=== PATIENT | female | born 1975 | race Caucasian/White ===

== ENCOUNTER 2016-08-29 15:29 | Emergency (ER) | payer MEDICARE ==
[2016-08-29 15:36] VITALS: BMI 46.2
[2016-08-29] MEDS ORDERED: OXYCODONE HCL 5 MG TABLET PO ONE (16:06)
[2016-08-29 16:07] LABS: LEUKOCYTES/URINE NEG (NEGATIVE); NITRITE/URINE NEG (NEGATIVE); RBC/URINE 0-2 (0-5); URINE OCCULT BLOOD 1+ (NEG/TRACE)
--- NOTE | 2016-08-29 16:09 | EDPRACDOC ---
- General Information Chief Complaint: Abdominal Pain Stated Complaint: ABD PAIN, INCREASED URINATION Time Seen by Provider: 08/29/16 15:59 Mode Of Arrival: Car Home Medications: Home Medications Atorvastatin Calcium [Lipitor] 20 mg PO DAILY 01/15/16 Benztropine Mesylate 1 mg PO BID 01/15/16 CloNIDine (Antihypertensive) [Catapres] 0.1 mg PO TID 01/15/16 Levothyroxine [Synthroid, Levoxyl] 125 mcg PO DAILY 01/15/16 Lurasidone HCl [Latuda] 80 mg PO QHS 01/15/16 Ranitidine HCl [Zantac] 300 mg PO QHS 01/15/16 Folic Acid 1 mg PO DAILY 02/12/16 Humalog Mix 75/25 50 units SQ TID 02/12/16 Propranolol HCl 10 mg PO DAILY 02/12/16 Canagliflozin [Invokana] 100 mg PO DAILY 08/29/16 Duloxetine HCl [Cymbalta] 30 mg PO DAILY 08/29/16 Ibuprofen [Advil] 200 mg PO Q4-6H PRN 08/29/16 Ketorolac Tromethamine [Toradol] 10 mg PO Q6H PRN #20 tab 08/29/16 [id number] Ethyl Esters [Lovaza ([place]-3 Acid Ethyl Esters)] 1,000 mg PO BID 08/29/16 Pregabalin [Lyrica] 200 mg PO TID 08/29/16 Sumatriptan Succinate [Imitrex] 100 mg PO DAILY PRN 08/29/16 Triamterene/Hydrochlorothiazid [Triamterene-Hctz 37.5-25 mg Tb] 1 tab PO DAILY 08/29/16 Allergies/Adverse Reactions: Allergies Allergy/AdvReac Type Severity Reaction Status Date / Time lisinopril Allergy Intermediate Edema-Oral/ Verified 08/29/16 15:36 Lip metformin Allergy Intermediate Nausea/Vomi Verified 08/29/16 15:36 ting pantoprazole Allergy Intermediate Diarrhea Verified 08/29/16 15:36 hydrocodone Allergy Hives* Verified 08/29/16 15:36 - History of Present Illness Onset: YEST HPI: PATIENT PRESENTS WITH LLQ ABDOMINAL PAIN RADIATING IN TO GROIN. STARTED LAST NIGHT. MILD NAUSEA. NO VOMITING. NO DIARRHEA. NO FEVER. HX OF HYSTERECTOMY WITH RIGHT OOPHORECTOMY, CHOLECYSTECTOMY Pain Location: Reports: LLQ Pain Context: Reports: Spontaneous Pain Severity: Mild Pain Quality: Reports: Aching Pain Radiation: Reports: No Radiation Control Method: Reports: Hysterectomy Adult Abdominal History: Reports: Abdominal Surgery Female Associated Signs & Symptoms: Reports: Nausea Oral Intake: Normal Urinary Output: Normal - Treatment Prior to ED Arrival Reported Medications/Treatment [employer] Ibuprofen/Acetaminophen (Dose/ MOTRIN 200MG-1300 Time) ED Past Medical History - History Reviewed Yes Nurses notes reviewed and agree except as marked Travel Outside of [place] in the Last 3 Months?: No - Patient Medical History Neurological History: Denies: Cerebrovascular Accident Cardiac History: Reports: Hypertension, Congestive Heart Failure (patient is unsure), Hypercholesterolemia Respiratory History: Reports: Asthma, COPD, Pneumonia, Emphysema GI/ History: Reports: Renal Disease, Gastroesophageal Reflux Musculoskeletal History: Reports: Arthritis Psychological History: Reports: Depression, Anxiety, Bipolar Disorder (Many emergency department visits. Has been hospitalized for mental health.). Denies : Substance Use Disorder Systemic History: Reports: Anemia, Diabetes, Hypothyroidism (and HIST OF PITUITARY TUMOR 7YRS AGO.). Denies: Cancer Surgical History: Reports: Cholecystectomy, Hysterectomy, Other (COPD, Asthma, Emphysema, Arthritis, GERD, Diabetes, Hypothyroidism) - Family Medical History Reports: Hypertension (Mother), Diabetes (Father), Cardiac Disorders (Paternal grandfather, [place] but in 70's.). Denies: Cancer - Social Medical History Smoking Status: Never smoker Social History: Denies: Substance Use Disorder Lives With: Family Lives In: Home EDM Review of Systems - Review of Systems ROS Negative Except as Marked: Yes All systems reviewed and were negative except as marked Constitutional: No Symptoms Reported. negative: Fever, Chills, Weakness, Fatigue, Loss of Appetite Eyes: No Symptoms Reported. negative: Redness, Blurred Vision, Double Vision, Discharge, Pain, Light Sensitive, Photophobia Ears: No Symptoms Reported. negative: Pain, Hearing Loss, Drainage, Ear Pulling Throat: No Symptoms Reported. negative: Pain, Swelling Nose: No Symptoms Reported. negative: Congestion, Bleeding, Discharge, Injection, Swelling, Deformity, Ecchymosis, Tender, Abrasion, Laceration Mouth: No Symptoms Reported. negative: Pain, Drooling Respiratory: No Symptoms Reported. negative: Cough, Brassy Cough, Barky Cough, Shortness of Breath, Wheezing, Hemoptysis Cardiovascular: No Symptoms Reported. negative: Chest Pain, Palpitations, Syncope, Edema, Orthopnea, PND, Skin Mottling, Cyanosis Gastrointestinal: Nausea, Pain. negative: Constipation, Diarrhea, Formula Intolerance, Melena, Vomiting Genitourinary: No Symptoms Reported. negative: Dysuria, Hematuria, Frequency, Discharge, Bleeding, Testicular Pain, Neurological: No Symptoms Reported. negative: Headache, Dizziness, Seizure, Numbness, Weakness, Speech Difficulty, Gait Difficulty Musculoskeletal: No Symptoms Reported. negative: Neck, Chestwall, Ribs, Back, Shoulder, Arm, Elbow, Forearm, Wrist, Hand, Pelvis, Hip, Femur, Knee, Leg, Ankle , Foot Integumentary: No Symptoms Reported. negative: Itching, Rash, Bruising, Wound Allergic/Immunologic: No Symptoms Reported. negative: Hives, Itching Hematologic: No Symptoms Reported. negative: Lymphadenopathy, Easy Bruising, Easy Bleeding Endocrine: No Symptoms Reported. negative: Weight Gain, Weight Loss Psychiatric: No Symptoms Reported. negative: Anxiety, Depression, Hallucinations, Insomnia, Suicidal - Physical Exam Constitutional: No apparent distress, Alert (Awake) Oriented to: Time, Person, Place Last recorded Vital Signs: Last Vital Signs Temp 97.8 F 08/29/16 15:31 Pulse 87 08/29/16 15:31 Resp 20 08/29/16 15:31 BP 153/100 08/29/16 15:31 Pulse Ox 97 08/29/16 15:31 Oxygen Pulse Oxygen Saturation 97 O2 Device Oxygen Flow Rate Fraction of Inspired Oxygen ( FIO2) - HEENT Head: Normal ( normocephalic) Eye Exam: Normal (PERRL, EOMI, Sclera white) Oropharynx: Normal (Pharynx:Moist without exudate,Gums-no swelling) Tympanic Membrane: Normal ENT EAC: Normal TMJ: Normal Nose: No Symptoms Reported (septum midline) Neck: Normal (FROM, trachea at midline) - Respiratory/Cardiovascular Respiratory: Normal - CTA (BBS clear to auscultation without adventitious sounds ) Cardiovascular: Normal (RRR without murmur, gallop or rub) - GI Auscultation: Normal (NABS) Palpation: Normal (Soft,No rebound or guarding, non distended) Tenderness: Mild, LLQ. negative: Rebound, Rigidity Carson's Sign: Negative - Bladder: Normal - Musculoskeletal Back: Normal (Non-Tender) Extremities: Normal (Normal tone, Pulses 2+ No cyanosis or edema, FROM) - Integumentary Skin: Normal, Warm, Dry Lymphatics: Normal (no adenopathy) - Neurologic Memory Impaired: Normal Motor Function: Normal (Normal tone, Pulses 2+ No cyanosis or edema, FROM) Cranial Nerve: Normal (CN II-X11 intact sensation, strength 5/5) Cerebellar: Normal Mood Description: Normal Perception: Normal - Results 08/29/16 16:35 08/29/16 16:35 WBC 8.5 xk/uL (3.8-10.8) 08/29/16 16:35 RBC 4.77 xM/uL (4.20-5.40) 08/29/16 16:35 Hgb 15.1 g/dL (12.0-16.0) 08/29/16 16:35 Hct 44.4 % (36-47) 08/29/16 16:35 MCV 93 fL (81-99) 08/29/16 16:35 MCH 31.6 pg (27-32) 08/29/16 16:35 MCHC 34.0 g/dl (33-36) 08/29/16 16:35 RDW 14.0 % (11.5-14.5) 08/29/16 16:35 Plt Count 304 xk/uL (130-400) 08/29/16 16:35 MPV 7.6 fL (7.4-10.4) 08/29/16 16:35 Neut % (Auto) 53.4 % (45-76) 08/29/16 16:35 Lymph % (Auto) 37.2 % (17-44) 08/29/16 16:35 [place] % (Auto) 6.5 % (3-10) 08/29/16 16:35 Eos % (Auto) 1.6 % (0-5) 08/29/16 16:35 Baso % (Auto) 1.3 % (0-2) 08/29/16 16:35 Absolute Neuts (auto) 4.51 xk/uL (1.7-8.2) 08/29/16 16:35 Absolute Lymphs (auto) 3.15 xk/uL (0.65-4.75) 08/29/16 16:35 Urine Color Pale yellow 08/29/16 15:38 Urine Clarity Hazy 08/29/16 15:38 Urine pH 5.0 (5.0-8.0) 08/29/16 15:38 Ur Specific [place] 1.005 (1.003-1.035) 08/29/16 15:38 Urine Protein Neg (NEG/TRACE) 08/29/16 15:38 Urine Glucose (UA) 3+ (NEGATIVE) H 08/29/16 15:38 Urine Ketones Neg (NEGATIVE) 08/29/16 15:38 Urine Occult Blood 1+ (NEG/TRACE) H 08/29/16 15:38 Urine Nitrite Neg (NEGATIVE) 08/29/16 15:38 Urine Bilirubin Neg (NEGATIVE) 08/29/16 15:38 Urine Urobilinogen <2.0 MG/DL (0-1) 08/29/16 15:38 Ur Leukocyte Esterase Neg (NEGATIVE) 08/29/16 15:38 Urine RBC 0-2 (0-5) 08/29/16 15:38 Urine WBC 2-5 (0-5) 08/29/16 15:38 Ur Epithelial Cells 1+ 08/29/16 15:38 Urine Bacteria 1+ (NEG/FEW) H 08/29/16 15:38 Urine Mucus Occ (NEG/OCC) 08/29/16 15:38 Urine Yeast Sm amt (NONE) 08/29/16 15:38 Urine Test Neg (NEGATIVE) 08/29/16 16:35 Lab Results 08/29/16 08/29/16 08/29/16 16:35 16:35 15:38 WBC 8.5 RBC 4.77 Hgb 15.1 Hct 44.4 MCV 93 MCH 31.6 MCHC 34.0 RDW 14.0 Plt Count 304 MPV 7.6 Neut % (Auto) 53.4 Lymph % (Auto) 37.2 [place] % (Auto) 6.5 Eos % (Auto) 1.6 Baso % (Auto) 1.3 Absolute Neuts (auto) 4.51 Absolute Lymphs (auto) 3.15 Urine Color Pale yellow Urine Clarity Hazy Urine pH 5.0 Ur Specific [place] 1.005 Urine Protein Neg Urine Glucose (UA) 3+ H Urine Ketones Neg Urine Occult Blood 1+ H Urine Nitrite Neg Urine Bilirubin Neg Urine Urobilinogen <2.0 Ur Leukocyte Esterase Neg Urine RBC 0-2 Urine WBC 2-5 Ur Epithelial Cells 1+ Urine Bacteria 1+ H Urine Mucus Occ Urine Yeast Sm amt Urine Test Neg Decision Time to Discharge: 17:28 - Departure Yes I personally saw and evaluated the patient. Disposition: Home Condition: Good Final Diagnosis: Abdominal pain Instructions: Acute Abdominal Pain (ED) Education/Counseling Given To: Patient Education/Counseling Given Regarding: Diagnosis, Treatment, Prognosis, Follow Up Referrals: Lourdes Harden DO [Primary Care Provider] - One Week Prescriptions: New Ketorolac Tromethamine [Toradol] 10 mg PO Q6H PRN #20 tab PRN Reason: Pain No Action Ranitidine HCl [Zantac] 300 mg PO QHS Lurasidone HCl [Latuda] 80 mg PO QHS Levothyroxine [Synthroid, Levoxyl] 125 mcg PO DAILY CloNIDine (Antihypertensive) [Catapres] 0.1 mg PO TID Benztropine Mesylate 1 mg PO BID Atorvastatin Calcium [Lipitor] 20 mg PO DAILY Propranolol HCl 10 mg PO DAILY Humalog Mix 75/25 50 units SQ TID Folic Acid 1 mg PO DAILY Triamterene/Hydrochlorothiazid [Triamterene-Hctz 37.5-25 mg Tb] 1 tab PO DAILY Sumatriptan Succinate [Imitrex] 100 mg PO DAILY PRN PRN Reason: Migraine Headache Pregabalin [Lyrica] 200 mg PO TID [id number] Ethyl Esters [Lovaza ([place]-3 Acid Ethyl Esters)] 1,000 mg PO BID Duloxetine HCl [Cymbalta] 30 mg PO DAILY Canagliflozin [Invokana] 100 mg PO DAILY Ibuprofen [Advil] 200 mg PO Q4-6H PRN PRN Reason: Pain
[2016-08-29 16:47] LABS: AUTOMATED BASOPHIL 1.3 % (0-2); AUTOMATED EOSINOPHIL 1.6 % (0-5); AUTOMATED LYMPH 37.2 % (17-44); AUTOMATED MONOCYTE 6.5 % (3-10); AUTOMATED NEUTROPHIL 53.4 % (45-76); MPV 7.6 fL (7.4-10.4)
--- NOTE | 2016-08-29 17:13 | DIRPT ---
CLINICAL DATA: Lower abdominal pain. Left flank pain. Dysuria and nausea. EXAM: CT ABDOMEN AND PELVIS WITHOUT CONTRAST TECHNIQUE: Multidetector CT imaging of the abdomen and pelvis was performed following the standard protocol without IV contrast. COMPARISON: 10/30/2015 FINDINGS: Lower chest: No acute findings. Hepatobiliary: No mass visualized on this un-enhanced exam. Postcholecystectomy. Pancreas: No mass or inflammatory process identified on this un-enhanced exam. Spleen: Within normal limits in size. Adrenals/Urinary Tract: No evidence of urolithiasis or hydronephrosis. No definite mass visualized on this un-enhanced exam. Bilateral perirenal fat stranding, nonspecific. Stomach/Bowel: No evidence of obstruction, inflammatory process, or abnormal fluid collections. The appendix is normal. Vascular/Lymphatic: No pathologically enlarged lymph nodes. No evidence of abdominal aortic aneurysm. Reproductive: Postcholecystectomy. No mass or other significant abnormality. Other: There is diastases of the anterior abdominal wall with small fat containing periumbilical hernia. Musculoskeletal: No suspicious bone lesions identified. Mild osteoarthritic changes of the lower lumbosacral spine. IMPRESSION: No evidence of obstructive uropathy. Mild bilateral symmetric nonspecific perirenal fat stranding. Small periumbilical fat containing anterior abdominal wall hernia. Electronically Signed By: Wallace Gavin M.D. On: 08/29/2016 17:10
[2016-08-29 17:33] VITALS: BP 129/87; PULSE 93; TEMP 98.6
== END 2016-08-29 17:39 | disposition home or self-care (01) ==
LOC: ED 15:29
DX: R10.32 Left lower quadrant pain (principal)
CPT/HCPCS: 36415; 74176; 81001; 81025; 85025; 99283; A9270; J3490

== ENCOUNTER 2016-09-02 03:30 | Emergency (ER) | payer MEDICARE ==
[2016-09-02 03:30] VITALS: BMI 46.2
--- NOTE | 2016-09-02 03:53 | EDPRACDOC ---
- General Information Chief Complaint: Nausea,Vomiting,Diarrhea Stated Complaint: DIARRHEA Time Seen by Provider: 09/02/16 03:51 Information Source: Patient Mode Of Arrival: Car Home Medications: Home Medications Atorvastatin Calcium [Lipitor] 20 mg PO DAILY 01/15/16 Benztropine Mesylate 1 mg PO BID 01/15/16 CloNIDine (Antihypertensive) [Catapres] 0.1 mg PO TID 01/15/16 Levothyroxine [Synthroid, Levoxyl] 125 mcg PO DAILY 01/15/16 Lurasidone HCl [Latuda] 80 mg PO QHS 01/15/16 Ranitidine HCl [Zantac] 300 mg PO QHS 01/15/16 Folic Acid 1 mg PO DAILY 02/12/16 Humalog Mix 75/25 50 units SQ TID 02/12/16 Propranolol HCl 10 mg PO DAILY 02/12/16 Canagliflozin [Invokana] 100 mg PO DAILY 08/29/16 Duloxetine HCl [Cymbalta] 30 mg PO DAILY 08/29/16 Ibuprofen [Advil] 200 mg PO Q4-6H PRN 08/29/16 Ketorolac Tromethamine [Toradol] 10 mg PO Q6H PRN #20 tab 08/29/16 [id number] Ethyl Esters [Lovaza ([place]-3 Acid Ethyl Esters)] 1,000 mg PO BID 08/29/16 Pregabalin [Lyrica] 200 mg PO TID 08/29/16 Sumatriptan Succinate [Imitrex] 100 mg PO DAILY PRN 08/29/16 Triamterene/Hydrochlorothiazid [Triamterene-Hctz 37.5-25 mg Tb] 1 tab PO DAILY 08/29/16 Dicyclomine HCl [Bentyl] 20 mg PO Q6H PRN #20 tab 09/02/16 Allergies/Adverse Reactions: Allergies Allergy/AdvReac Type Severity Reaction Status Date / Time lisinopril Allergy Intermediate Edema-Oral/ Verified 08/29/16 15:36 Lip metformin Allergy Intermediate Nausea/Vomi Verified 08/29/16 15:36 ting pantoprazole Allergy Intermediate Diarrhea Verified 08/29/16 15:36 hydrocodone Allergy Hives* Verified 08/29/16 15:36 - History of Present Illness Onset: Thursday HPI: DIARRHEA SINCE THURSDAY, ABOUT 10 TIMES PER DAY. SEVERE INTERMITTENT DIFFUSE ABD PAIN. NO RECENT ABX USE. NAUSEA, NO VOMITING. CT UROGRAM THURSDAY. ED Past Medical History - Patient Medical History Neurological History: Denies: Cerebrovascular Accident Cardiac History: Reports: Hypertension, Congestive Heart Failure (patient is unsure), Hypercholesterolemia Respiratory History: Reports: Asthma, COPD, Pneumonia, Emphysema GI/ History: Reports: Renal Disease, Gastroesophageal Reflux Musculoskeletal History: Reports: Arthritis Psychological History: Reports: Depression, Anxiety, Bipolar Disorder. Denies: Substance Use Disorder Systemic History: Reports: Anemia, Diabetes, Hypothyroidism (and HIST OF PITUITARY TUMOR 7YRS AGO.). Denies: Cancer Surgical History: Reports: Cholecystectomy, Hysterectomy, Other (COPD, Asthma, Emphysema, Arthritis, GERD, Diabetes, Hypothyroidism) - Family Medical History Reports: Hypertension (Mother), Diabetes (Father), Cardiac Disorders (Paternal grandfather, [place] but in 70's.). Denies: Cancer - Social Medical History Smoking Status: Never smoker Social History: Denies: Substance Use Disorder EDM Review of Systems - Review of Systems ROS Negative Except as Marked: Yes All systems reviewed and were negative except as marked Constitutional: Weakness Eyes: No Symptoms Reported Respiratory: No Symptoms Reported Cardiovascular: No Symptoms Reported Genitourinary: No Symptoms Reported - Physical Exam Constitutional: Alert (Awake), No apparent distress Oriented to: Time, Person, Place Last recorded Vital Signs: Last Vital Signs Temp 97.4 F L 09/02/16 03:43 Pulse 85 09/02/16 03:43 Resp 18 09/02/16 03:43 BP 143/79 09/02/16 03:43 Pulse Ox 97 09/02/16 03:43 Oxygen Pulse Oxygen Saturation 97 O2 Device Room Air Oxygen Flow Rate Fraction of Inspired Oxygen ( FIO2) - HEENT Head: Normal ( normocephalic) Eye Exam: Normal (PERRL, EOMI, Sclera white) Oropharynx: Normal (Pharynx:Moist without exudate,Gums-no swelling) Nose: No Symptoms Reported (septum midline) Neck: Normal (FROM, trachea at midline) - Respiratory/Cardiovascular Respiratory: Normal - CTA (BBS clear to auscultation without adventitious sounds ) Cardiovascular: Normal (RRR without murmur, gallop or rub) - GI Auscultation: Normal (NABS) Palpation: Normal (Soft,No rebound or guarding, non distended), Other (MORBIDLY OBESE.) Tenderness: Moderate (UPPER ABD TTP.) Carson's Sign: Negative - Musculoskeletal Back: Normal (Non-Tender) Extremities: Normal (Normal tone, Pulses 2+ No cyanosis or edema, FROM) - Integumentary Skin: Normal, Warm, Dry Lymphatics: Normal (no adenopathy) - Neurologic Memory Impaired: Normal Motor Function: Normal (Normal tone, Pulses 2+ No cyanosis or edema, FROM) Cranial Nerve: Normal (CN II-X11 intact sensation, strength 5/5) Cerebellar: Normal Mood Description: Normal Perception: Normal - Results 09/02/16 04:12 09/02/16 04:12 Decision Time to Discharge: 05:57 - Departure Yes I personally saw and evaluated the patient. Disposition: Home Condition: Stable Final Diagnosis: Abdominal pain Diarrhea Qualifiers: Diarrhea type: unspecified type Qualified Code(s): R19.7 - Diarrhea, unspecified Instructions: Acute Diarrhea (ED) Education/Counseling Given To: Patient Education/Counseling Given Regarding: Diagnosis Referrals: None,No Provider [Primary Care Provider] - One Week Prescriptions: New Dicyclomine HCl [Bentyl] 20 mg PO Q6H PRN #20 tab PRN Reason: Abdominal Pain No Action Ranitidine HCl [Zantac] 300 mg PO QHS Lurasidone HCl [Latuda] 80 mg PO QHS Levothyroxine [Synthroid, Levoxyl] 125 mcg PO DAILY CloNIDine (Antihypertensive) [Catapres] 0.1 mg PO TID Benztropine Mesylate 1 mg PO BID Atorvastatin Calcium [Lipitor] 20 mg PO DAILY Propranolol HCl 10 mg PO DAILY Humalog Mix 75/25 50 units SQ TID Folic Acid 1 mg PO DAILY Triamterene/Hydrochlorothiazid [Triamterene-Hctz 37.5-25 mg Tb] 1 tab PO DAILY Sumatriptan Succinate [Imitrex] 100 mg PO DAILY PRN PRN Reason: Migraine Headache Pregabalin [Lyrica] 200 mg PO TID [id number] Ethyl Esters [Lovaza ([place]-3 Acid Ethyl Esters)] 1,000 mg PO BID Duloxetine HCl [Cymbalta] 30 mg PO DAILY Canagliflozin [Invokana] 100 mg PO DAILY Ibuprofen [Advil] 200 mg PO Q4-6H PRN PRN Reason: Pain Ketorolac Tromethamine [Toradol] 10 mg PO Q6H PRN #20 tab PRN Reason: Pain
[2016-09-02] MEDS ORDERED: NS 1,000 ML IV ONE (03:54)
[2016-09-02] MEDS ORDERED: Pharmacy Review for Metformin - IV Contrast Given SCH (04:00)
[2016-09-02 04:31] LABS: AUTOMATED BASOPHIL 0.9 % (0-2); AUTOMATED EOSINOPHIL 1.6 % (0-5); AUTOMATED LYMPH 36.7 % (17-44); AUTOMATED MONOCYTE 7.6 % (3-10); AUTOMATED NEUTROPHIL 53.2 % (45-76); MPV 8.2 fL (7.4-10.4)
[2016-09-02 04:34] LABS: BLOOD UREA NITROGEN 24 MG/DL (7-17); CALCIUM 9.5 MG/DL (8.4-10.2); CHLORIDE 90 mEq/L (98-107); SODIUM LEVEL 129 mEq/L (137-146); TOTAL PROTEIN 7.3 G/DL (6.3-8.2)
[2016-09-02 04:43] LABS: CALCULATED OSMOLALITY 284 MOs/Kg (270-290)
[2016-09-02 04:44] LABS: GLUCOSE 656 MG/DL (70-99)
[2016-09-02] MEDS ORDERED: REGULAR INSULIN 100 UNITS/ML - 3 ML VIAL SQ ONE (05:05)
[2016-09-02 05:50] LABS: RBC/URINE 0-2 (0-5); WBC/URINE 0-2 (0-5)
[2016-09-02 05:51] LABS: LEUKOCYTES/URINE NEG (NEGATIVE); NITRITE/URINE NEG (NEGATIVE); URINE OCCULT BLOOD NEG (NEG/TRACE)
[2016-09-02 06:47] VITALS: BP 121/81; PULSE 81; TEMP 98
== END 2016-09-02 06:37 | disposition home or self-care (01) ==
LOC: ED 03:30
DX: R10.9 Unspecified abdominal pain (principal); R19.7 Diarrhea, unspecified
CPT/HCPCS: 36415; 80053; 81001; 85025; 96360; 96372; 99283; A9270; J3490